=== PATIENT | female | born 1955 | race Caucasian/White ===

== ENCOUNTER 2023-07-18 10:50 | Outpatient (RCR) | payer MEDICARE, OTHER, SELFPAY | END 2023-07-18 23:59 | disposition home or self-care (01) | LOC: RPT 10:50 | PROVIDERS: ATTENDING PHYSICIAN Orthopaedic Surgery; FAMILY PHYSICIAN Physician Assistant Medical | DX: M16.11 Unilateral primary osteoarthritis, right hip (principal); Z73.6 Limitation of activities due to disability | CPT/HCPCS: 97010; 97110; 97112; 97116; 97140; 97161; 97530 ==

== ENCOUNTER 2023-08-17 14:55 | Outpatient (RCR) | payer MEDICARE, OTHER, SELFPAY | END 2023-08-17 23:59 | disposition home or self-care (01) | LOC: RPT 14:55 | PROVIDERS: ATTENDING PHYSICIAN Orthopaedic Surgery; FAMILY PHYSICIAN Physician Assistant Medical | DX: M16.11 Unilateral primary osteoarthritis, right hip (principal); Z73.6 Limitation of activities due to disability | CPT/HCPCS: 97110; 97112; 97116; 97530 ==

== ENCOUNTER 2023-09-07 10:50 | Outpatient (RCR) | payer MEDICARE, OTHER, SELFPAY | END 2023-09-07 14:14 | disposition home or self-care (01) | LOC: RPT 10:50 | PROVIDERS: ATTENDING PHYSICIAN Orthopaedic Surgery; FAMILY PHYSICIAN Physician Assistant Medical | DX: Z47.1 Aftercare following joint replacement surgery (principal); M16.11 Unilateral primary osteoarthritis, right hip; Z73.6 Limitation of activities due to disability; M62.81 Muscle weakness (generalized); R26.89 Other abnormalities of gait and mobility; Z96.641 Presence of right artificial hip joint | CPT/HCPCS: 97110; 97112; 97530 ==

== ENCOUNTER → 2024-02-20 06:46 | Outpatient (REF) | payer MEDICARE, OTHER, SELFPAY | LOC: RAD 06:46 | PROVIDERS: ATTENDING PHYSICIAN Physician Assistant Medical | DX: Z13.6 Encounter for screening for cardiovascular disorders (principal) | CPT/HCPCS: 76770 ==

== ENCOUNTER → 2024-03-28 14:35 | Outpatient (REF) | payer MEDICARE, OTHER, SELFPAY | LOC: PAVMRI 14:35 | PROVIDERS: ATTENDING PHYSICIAN Orthopaedic Surgery; FAMILY PHYSICIAN Physician Assistant Medical | DX: M25.552 Pain in left hip (principal) | CPT/HCPCS: 73721 ==

== ENCOUNTER → 2024-04-29 12:30 | Outpatient (REF) | payer MEDICARE, OTHER, SELFPAY | LOC: RAD 12:30 | PROVIDERS: ATTENDING PHYSICIAN Physician Assistant Medical | DX: S69.92XA Unspecified injury of left wrist, hand and finger(s), initial encounter (principal) | CPT/HCPCS: 73090; 73130 ==

== ENCOUNTER → 2024-05-24 10:14 | Outpatient (REF) | payer MEDICARE, OTHER, SELFPAY | LOC: RAD 10:14 | PROVIDERS: ATTENDING PHYSICIAN Physician Assistant Medical | DX: R93.89 Abnormal findings on diagnostic imaging of other specified body structures (principal); Z78.0 Asymptomatic menopausal state | CPT/HCPCS: 76830; 76856 ==

== ENCOUNTER → 2024-07-19 01:00 | Outpatient (REF) | payer MEDICARE, OTHER, SELFPAY | LOC: CLAB 01:00 | PROVIDERS: ATTENDING PHYSICIAN Obstetrics & Gynecology Gynecology | DX: R93.89 Abnormal findings on diagnostic imaging of other specified body structures (principal); N84.0 Polyp of corpus uteri | CPT/HCPCS: 88305 ==

== ENCOUNTER → 2025-02-20 17:46 | Outpatient (REF) | payer MEDICARE, OTHER, SELFPAY | LOC: WDC 17:46 | PROVIDERS: ATTENDING PHYSICIAN Obstetrics & Gynecology Gynecology; FAMILY PHYSICIAN Physician Assistant Medical | DX: Z12.31 Encounter for screening mammogram for malignant neoplasm of breast (principal) | CPT/HCPCS: 77063; 77067 ==